=== PATIENT | male | born 2000 | race Two or more races ===

== ENCOUNTER 2023-09-22 22:16 | Inpatient (IN) | payer MEDICAID, OTHER ==
[~2023-09-22] VITALS: Ht 180.3 cm; Wt 76.0 kg
[2023-09-22 23:34] LABS: ANION GAP 8 mmol/L (8-16); CALCIUM, TOTAL 9.6 mg/dL (8.8-10.5); CARBON DIOXIDE 29 mmol/L (22-29); CHLORIDE 100 mmol/L (98-107); CREATININE 1.08 mg/dL (0.60-1.30); GLOMERULAR FILTR. RATE CALC > 60 mL/min (>60); GLUCOSE,RANDOM 97 mg/dL (70-110); POTASSIUM 3.8 mmol/L (3.5-5.1); SODIUM SERUM 137 mmol/L (136-145); UREA NITROGEN, BLOOD 21 mg/dL (7-18)
[2023-09-22 23:40] LABS: ALANINE AMINOTRANSFERASE 35 U/L (12-78); ALBUMIN 4.5 g/dL (3.4-5.0); ALKALINE PHOSPHATASE 102 U/L (46-116); ASPARTATE AMINOTRANSFERASE 44 U/L (15-37); BASOPHILS % (AUTO) 0.7 % (0.0-2.0); BILIRUBIN,TOTAL 0.9 mg/dL (0.1-1.0); EOSINOPHILS % (AUTO) 5.5 % (1.0-6.0); HEMATOCRIT 41.7 % (41-53); HEMOGLOBIN 14.6 g/dL (13.5-17.5); LYMPHOCYTES # (AUTO) 2.7 K/uL (1.0-4.8); LYMPHOCYTES % (AUTO) 35.2 % (22.0-44.0); MEAN CORPUSCULAR VOLUME 89 fL (80-100); MONOCYTES # (AUTO) 0.6 K/uL (0.1-1.0); MONOCYTES % (AUTO) 8.4 % (2.0-9.0); NEUTROPHILS # (AUTO) 3.8 K/uL (1.8-7.7); NEUTROPHILS % (AUTO) 50.2 % (40.0-70.0); PLATELET COUNT (AUTO) 229 K/uL (150-450); RED BLOOD CELL COUNT(AUTO) 4.71 MIL/uL (4.50-5.90); RED CELL DISTRIBUTION WIDTH 14.1 % (11.5-14.5); TOTAL PROTEIN, SERUM 8.7 g/dL (6.4-8.2); WHITE BLOOD COUNT (AUTO) 7.6 K/uL (4.5-11.0)
[2023-09-23 00:07] LABS: ALCOHOL, BLOOD (SERUM) < 3 mg/dL (0-10)
[2023-09-23] MEDS ORDERED: ZOLPIDEM TARTRATE 10 MG TABLET PO PRN (01:15)
[2023-09-23] MEDS ORDERED: LORazepam 2 MG TABLET PO PRN (01:15)
[2023-09-23] MEDS ORDERED: HALOPERIDOL 5 MG TABLET PO PRN (01:15)
[2023-09-23 01:21] LABS: COVID AG,FIA SOURCE NASAL SWAB
[2023-09-23 01:29] LABS: PH,URINE DRUG SCREEN 5.5 (5.0-8.0)
[2023-09-23 01:36] LABS: ALCOHOL, URINE DRUG SCREEN NEGATIVE (NEGATIVE); AMPHET/METH SCREEN,URINE POSITIVE (NEGATIVE); BARBITURATE SCREEN, URINE NEGATIVE (NEGATIVE); BENZODIAZEPINES SCREEN,URINE NEGATIVE (NEGATIVE); CANNABINOID SCREEN,URINE POSITIVE (NEGATIVE); COCAINE SCREEN,URINE NEGATIVE (NEGATIVE); METHADONE SCREEN, URINE NEGATIVE (NEGATIVE); OPIATE SCREEN,URINE NEGATIVE (NEGATIVE); PHENCYCLIDINE SCREEN,URINE NEGATIVE (NEGATIVE)
[2023-09-23 01:39] LABS: SARS-COV2 (COVID) ANTIGEN,FIA Negative (Negative)
[2023-09-24 04:52] VITALS: BP 127/72; PULSE 72; RESP 17; TEMP 97.4
[2023-09-24 04:54] VITALS: BP 127/77; PULSE 72; RESP 17; TEMP 97.4; O2SAT 100
[2023-09-24] MEDS ORDERED: INFLUENZA VIRUS VACCINE QVS 2023-24 (6MO+)/PF 60 MCG/0.5 ML SYRINGE IM. ONE (05:45)
[2023-09-24] MEDS ORDERED: NICOTINE 14 MG/24 HOUR PATCH TD ONE (07:00)
[2023-09-24 08:58] VITALS: BP 121/72; PULSE 75; RESP 18; TEMP 97.6; O2SAT 96
[2023-09-24] MEDS ORDERED: DOCUSATE SODIUM 100 MG CAPSULE PO PRN (14:15)
[2023-09-24] MEDS ORDERED: ALBUTEROL SULFATE HFA 90 MCG/PUFF 8 GM INHALER IH PRN (14:15)
[2023-09-24] MEDS ORDERED: MAG HYDROX/ALUMINUM HYD/SIMETH ES 30 ML SUSPENSION UDCUP PO PRN (14:15)
[2023-09-24] MEDS ORDERED: IBUPROFEN 400 MG TABLET PO PRN (14:15)
[2023-09-24] MEDS ORDERED: LOPERAMIDE HCL 2 MG CAPSULE PO PRN (14:15)
[2023-09-24] MEDS ORDERED: GuaiFENesin/D-METHORPHAN [SUGAR-FREE] 200-20MG/10 ML SYRUP UDCUP PO PRN (14:15)
[2023-09-24] MEDS ORDERED: PETROLATUM,WHITE 28 GM JELLY TP PRN (14:15)
[2023-09-24] MEDS ORDERED: MAGNESIUM HYDROXIDE SUSPENSION 30 ML UDCUP PO PRN (14:15)
[2023-09-24] MEDS ORDERED: CloNIDine HCL 0.1 MG TABLET PO PRN (14:15)
[2023-09-24] MEDS ORDERED: NICOTINE 14 MG/24 HOUR PATCH TD PRN (14:15)
[2023-09-24] MEDS ORDERED: ACETAMINOPHEN 325 MG TABLET PO PRN (14:15)
[2023-09-24] MEDS ORDERED: ONDANSETRON HCL 4 MG TABLET PO PRN (14:15)
[2023-09-24] MEDS: OLANZapine 10 MG TABLET PO SCH (17:00)
[2023-09-24] MEDS: OLANZapine 5 MG TABLET PO SCH (20:24)
[2023-09-24 20:28] VITALS: BP 112/67; PULSE 70; RESP 19; TEMP 98; O2SAT 96
[2023-09-25 08:40] LABS: HEMOGLOBIN A1C 5.1 % (3.8-5.6)
[2023-09-25 08:46] LABS: CHOL/HDL RATIO 2.4 (4.2-7.3); THYROID STIMULATING HORMONE 0.35 uIU/mL (0.36-3.74)
[2023-09-25 08:52] VITALS: BP 139/82; PULSE 88; RESP 17; TEMP 97.9; O2SAT 96
[2023-09-25] MEDS: OLANZapine 10 MG TABLET PO SCH ×2 (09:24→17:00)
[2023-09-25 20:19] VITALS: RESP 18; TEMP 97.6
[2023-09-25] MEDS: OLANZapine 5 MG TABLET PO SCH (20:31)
[2023-09-26 07:54] LABS: APPEARANCE,URINE CLEAR (CLEAR); BILIRUBIN,URINE NEGATIVE (NEGATIVE); COLOR,URINE LIGHT YELLOW (YELLOW); GLUCOSE, URINE (UA) NEGATIVE (NEGATIVE); KETONES,URINE NEGATIVE (NEGATIVE); LEUKOCYTE ESTERASE ,URINE NEGATIVE (NEGATIVE); NITRATE,URINE NEGATIVE (NEGATIVE); OCCULT BLOOD,URINE NEGATIVE (NEGATIVE); PROTEIN,URINE NEGATIVE (NEGATIVE); SPECIFIC GRAVITIY, URINE 1.015 (1.003-1.030); UROBILINOGEN,URINE <=1.0 mg/dL (<=1.0)
[2023-09-26] MEDS: OLANZapine 10 MG TABLET PO SCH ×2 (08:50→16:11)
[2023-09-26 08:54] VITALS: BP 125/80; PULSE 77; RESP 18; TEMP 97.8; O2SAT 100
[2023-09-26] MEDS: OLANZapine 5 MG TABLET PO SCH (20:36)
[2023-09-26 20:54] VITALS: RESP 18
[2023-09-27] MEDS ORDERED: OLAN10TA74 PO (09:18)
[2023-09-27] MEDS: OLANZapine 10 MG TABLET PO SCH (10:05)
[2023-09-27 10:18] VITALS: BP 130/87; PULSE 91; RESP 17; TEMP 98.4; O2SAT 97
== END 2023-09-27 10:10 | disposition home or self-care (01) | DRG 750 ==
LOC: EMS 22:17 → B2S 09-24 00:10
PROVIDERS: ADMIT Psychiatry & Neurology Psychiatry; ATTEND Psychiatry & Neurology Psychiatry
DX: F20.0 Paranoid schizophrenia (principal); R45.850 Homicidal ideations; Z20.822 Contact with and (suspected) exposure to COVID-19; F15.10 Other stimulant abuse, uncomplicated; F12.10 Cannabis abuse, uncomplicated; F11.10 Opioid abuse, uncomplicated; R74.01 Elevation of levels of liver transaminase levels; R03.0 Elevated blood-pressure reading, without diagnosis of hypertension
CPT/HCPCS: 80053; 80061; 80307; 81003; 83036; 84443; 85025; 99285; G0480